=== PATIENT | male | born 1930 | race Caucasian/White ===

== ENCOUNTER 2016-06-14 09:18 | Inpatient (IN) | payer OTHER ==
--- NOTE | 2016-06-14 09:30 | CPEKG ---
Heart Rate: 82 RR Interval: 732 P-R Interval: 192 QRSD Interval: 122 QT Interval: 396 QTC Interval: 463 P Everett: 72 QRS Everett: -35 T Wave Everett: 98 EKG Severity - ABNORMAL ECG - EKG Impression: SINUS RHYTHM EKG Impression: NONSPECIFIC INTRAVENTRICULAR CONDUCTION DELAY EKG Impression: PROBABLE LATERAL INFARCT, AGE INDETERMINATE Electronically Signed By: Liz Chase 14-Jun-2016 16:28:22
[2016-06-14 09:45] LABS: % IMMATURE GRANULYOCYTES 0.3 % (0.0-1.1); ABSOLUTE IMMATURE GRANULOCYTES 0.03 10^3/uL (0.00-0.10); ADD DIFF? NO; ADD MORPH? NO; ADD SCAN? NO; ATYPICAL LYMPHOCYTE FLAG 0 (0-99); FRAGMENT RBC FLAG 0 (0-99); HEMATOCRIT 46.7 % (40.0-51.0); HEMOGLOBIN 15.4 g/dL (13.7-17.5); LEFT SHIFT FLG 0 (0-99); LIPEMIA HEMOLYSIS FLAG 80 (0-99); MEAN CELL HEMOGLOBIN 31.1 pg (27.9-34.1); MEAN CELL VOLUME 94.3 fL (81.5-99.8); MEAN PLATELET VOLUME 9.4 fL (8.7-11.7); PLATELET CLUMPS FLAG 30 (0-99); PLATELET COUNT 208 10^3/uL (150-400); RED BLOOD CELL COUNT 4.95 10^6/uL (4.40-6.38); RED CELL DISTRIBUTION WIDTH 13.7 % (11.5-15.2)
--- NOTE | 2016-06-14 09:49 | EDPHY ---
H & P Time Seen by Provider: 06/14/16 09:19 HPI/ROS: CHIEF COMPLAINT: shortness of breath, weakness HISTORY OF PRESENT ILLNESS: Patient is an 85-year-old male with a history of neuropathy who presents emergency department with increased weakness and shortness of breath. He states he has been mildly short of breath for some time but is worsened over the past few days. He has also developed a nonproductive cough. He denies chest pain. No nausea or vomiting. The patient is chronically incontinent of urine or stool. Patient generally needs aid of a walker to go to the bathroom. However, this morning he was unable to get himself out of bed. REVIEW OF SYSTEMS: My complete review of systems is negative except as mentioned in the HPI. Past Medical/Surgical History: Neuropathy, pneumonia, prostate issues Social History: Social history: The patient lives with his . He uses a walker to get about the house. Today he was unable to get out of bed. Smoking Status: Never smoked Physical Exam: Vitals noted. 37.5 GENERAL: No acute distress, alert. HEENT: Eyes normal to inspection, normal pharynx, no signs of dehydration. NECK: No thyromegaly, no lymphadenopathy, supple. RESPIRATORY: Slightly coarse breath sounds at right base, no rales, rhonchi or wheezing. CVS: Regular rate and rhythm, no rubs, murmurs, or gallops. ABDOMEN: Soft, nontender, nondistended, no organomegaly. Benign BACK: Normal to inspection, no CVA tenderness. SKIN: Normal color, no rash, warm, dry. No pallor. EXTREMITIES: No pedal edema, no calf tenderness, no Homans sign or cords, no joint swelling. NEURO/PSYCH: Alert and oriented x3, normal mood and affect, normal motor sensory exam. Constitutional: Initial Vital Signs Temperature (C) 37.5 C 06/14/16 09:32 Heart Rate 82 06/14/16 09:32 Respiratory Rate 20 06/14/16 09:32 Blood Pressure 146/69 H 06/14/16 09:32 O2 Sat (%) 83 L 06/14/16 09:32 O2 Delivery Mode Nasal Cannula O2 (L/minute) 4 Allergies/Adverse Reactions: No Known Allergies Allergy (Unverified 06/14/16 09:31) Home Medications: Medication Instructions Recorded Cyanocobalamin [Vitamin B12 (*)] 100 mcg PO DAILY 06/14/16 Finasteride [Proscar 5 MG (*)] 5 mg PO DAILY 06/14/16 Herbals/Supplements -Info Only 1 ea PO DAILY 06/14/16 Multivitamins [Multivitamin (*)] 1 each PO DAILY 06/14/16 Tamsulosin HCl [Flomax 0.4 MG (*)] 0.4 mg PO DAILY 06/14/16 Medical Decision Making ED Course/Re-evaluation: In the emergency department I discussed possible etiologies with the patient and his . I answered all his questions. IV was placed. Laboratory studies , EKG and chest x-ray were ordered. EKG: Sinus rhythm. Normal axis. Normal rhythm. P.r. QT normal. Mildly prolonged QRS. Chest x-ray: The patient has a left upper lobe mass. This consistent with TB versus malignancy per the radiologist. I reviewed the images with him personally. Patient was noted have a white count of 10. Lactate was 1.5. Troponin negative. I discussed the result with the patient. I answered all his questions. Patient normally gets his care at [facility]. I contacted the physician at 9 . They recommend the patient be admitted here. I discussed the plan with the patient and his . I answered all her questions. I discussed the case with the hospitalist service. Dr. Valdivia will admit. Patient was placed in a negative pressure room. 1235: The patient is doing well. No new complaints. 1440: I discussed the case with Dr. Valdivia. He recommends Rocephin and azithromycin. These were ordered. Differential Diagnosis: My differential includes but is not limited to pneumonia, bronchitis, influenza , ACS, acute MO, myocarditis, pericarditis, electrolyte abnormality, sugar abnormality, bacteremia, sepsis Patient was noted to have a left upper lobe mass. This is consistent with malignancy versus TB. The patient has no reported history of TB. I contacted [facility]. There is no history of malignancy. Patient will be admitted and further evaluated. Patient is not appear septic or toxic. - Data Points Laboratory Results: Laboratory Results 06/14/16 09:25 06/14/16 09:25 06/14/16 06/14/16 09:35 09:25 WBC 10.13 H 10^3/uL (3.80-9.50) RBC 4.95 10^6/uL (4.40-6.38) Hgb 15.4 g/dL (13.7-17.5) Hct 46.7 % (40.0-51.0) MCV 94.3 fL (81.5-99.8) MCH 31.1 pg (27.9-34.1) MCHC 33.0 g/dL (32.4-36.7) RDW 13.7 % (11.5-15.2) Plt Count 208 10^3/uL (150-400) MPV 9.4 fL (8.7-11.7) Neut % (Auto) 92.3 H % (39.3-74.2) Lymph % (Auto) 3.4 L % (15.0-45.0) [place] % (Auto) 3.4 L % (4.5-13.0) Eos % (Auto) 0.3 L % (0.6-7.6) Baso % (Auto) 0.3 % (0.3-1.7) Nucleat RBC Rel Count 0.0 % (0.0-0.2) Absolute Neuts (auto) 9.36 H 10^3/uL (1.70-6.50) Absolute Lymphs (auto) 0.34 L 10^3/uL (1.00-3.00) Absolute Monos (auto) 0.34 10^3/uL (0.30-0.80) Absolute Eos (auto) 0.03 10^3/uL (0.03-0.40) Absolute Basos (auto) 0.03 10^3/uL (0.02-0.10) Absolute Nucleated RBC 0.00 10^3/uL (0-0.01) Immature Gran % 0.3 % (0.0-1.1) Immature Gran # 0.03 10^3/uL (0.00-0.10) PT 13.6 SEC (12.0-15.0) INR 1.05 (0.83-1.16) APTT 29.3 SEC (23.0-38.0) VBG Lactic Acid 1.5 mmol/L (0.7-2.1) Sodium 146 H mEq/L (134-144) Potassium 4.3 mEq/L (3.5-5.2) Chloride 105 mEq/L (97-110) Carbon Dioxide 29 mEq/l (22-31) Anion Gap 12 mEq/L (8-16) BUN 20 mg/dL (7-23) Creatinine 0.9 mg/dL (0.7-1.3) Estimated GFR > 60 Glucose 101 H mg/dL (70-100) Calcium 9.0 mg/dL (8.5-10.4) Troponin I 0.023 ng/mL (0-0.034) Departure - Departure Disposition: [facility] Inpatient Acute Clinical Impression: Lung mass Condition: Good
[2016-06-14 09:52] LABS: ANION GAP 12 mEq/L (8-16); CARBON DIOXIDE 29 mEq/l (22-31); CHLORIDE 105 mEq/L (97-110); CREATININE 0.9 mg/dL (0.7-1.3); GLOMERULAR FILTRATION RATE > 60; GLUCOSE 101 mg/dL (70-100); POTASSIUM 4.3 mEq/L (3.5-5.2); SODIUM 146 mEq/L (134-144)
[2016-06-14 09:59] LABS: INR 1.05 (0.83-1.16); PROTIME(PATIENT) 13.6 SEC (12.0-15.0)
[2016-06-14 10:00] LABS: APTT 29.3 SEC (23.0-38.0)
[2016-06-14 10:03] LABS: TROPONIN I 0.023 ng/mL (0-0.034)
--- NOTE | 2016-06-14 10:31 | DX ---
PA and lateral chest. Clinical History: SOB Comparison Study: None available. Findings: Pleural and parenchymal fibrosis with volume loss is identified in the left upper lobe. Thi s may be secondary to prior infectious etiology such as tuberculosis or malignancy. Comparison with p rior studies or chest CT would be of benefit in further evaluation. Minimal atelectasis or scarring right lower lobe. Heart size is normal. No pleural effusion.. Multiple posterior remote left rib fractures are identified, predominantly involving the fourth, fift h, sixth, and seventh ribs. 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 Recommend comparison with prior examinations or chest CT.. Right lower lobe atelectasis or scarring. Examination reviewed with Dr. Liz Chase.
[2016-06-14] MEDS ORDERED: ONDANSETRON DISINTEGRATING 4 MG TAB PO PRN (12:28)
[2016-06-14] MEDS ORDERED: ONDANSETRON 4 MG/2 ML VIAL IVP PRN (12:28)
[2016-06-14] MEDS ORDERED: ACETAMINOPHEN 325 MG TAB PO PRN (12:28)
[2016-06-14] MEDS ORDERED: IOPAMIDOL (ISOVUE-300) 100 ML BTL IV ONE (12:58)
[2016-06-14] MEDS ORDERED: AZITHROMYCIN IV 500 MG in D5W 250 ML IV ONE (13:53)
--- NOTE | 2016-06-14 14:15 | CT ---
CT Chest (With Contrast) Indication: Abnormal left upper lobe. Technique: Standard CT of the chest following intravenous administration of 90 mL of Isovue-300. Dose reduction techniques were utilized. Comparison: Chest x-ray performed earlier the same day. Findings: Lung windows: There is cicatricial atelectasis and bronchiectasis of the left upper lobe associated w ith diffuse pleural thickening. Imaging features are most compatible with prior inflammatory etiology , including possible tuberculosis. No dominant lung mass identified. Within the right lung, there is patchy atelectasis of the right lower lobe above the right hemidiaphragm. No significant pleural effu micheal bilaterally. Mediastinal windows: No pleural effusion. No masses identified. Images of the upper abdomen appear be nign. Impression: Cicatricial atelectasis and volume loss left upper lobe with associated pleural fibrosis. Findings are most compatible with postinflammatory etiology, including possible tuberculosis.
--- NOTE | 2016-06-14 14:25 | PDGENHP ---
History and Physical - Chief Complaint Acute weakness - History of Present Illness Primary care provider: Dr. Perry HPI: 85-year-old male presenting with acute weakness characterized as inability to get out of bed with associated shortness of breath exacerbated by exertion and nonproductive cough experienced in the morning. Patient reports his onset of symptoms was approximately 1 month ago and duration has been acutely worsening over the past several days. His cough is worse in the mornings and is alleviated by sitting upright coughing and is not productive of sputum. Reports no recent travel and no recent chest pain, no fever, no chills , no weight loss, no night sweats. He has not had any recent medication changes he reports that he is generally otherwise healthy. That being said, he requires the assistance a walker in order to transition from bed to standing position at his baseline. Of note, the patient reports that 1 of the nurses at his adult daycare center noted his pulmonary exam was abnormal over the past month, but no further workup was initiated. History Information - Allergies/Home Medication List Allergies/Adverse Reactions: No Known Allergies Allergy (Unverified 06/14/16 09:31) Home Medications: Cyanocobalamin [Vitamin B12 (*)] 100 mcg PO DAILY 06/14/16 [Last Taken 06/13/16] Finasteride [Proscar 5 MG (*)] 5 mg PO DAILY 06/14/16 [Last Taken 06/13/16] Herbals/Supplements -Info Only 1 ea PO DAILY 06/14/16 [Last Taken 06/13/16] Multivitamins [Multivitamin (*)] 1 each PO DAILY 06/14/16 [Last Taken 06/13/16] Tamsulosin HCl [Flomax 0.4 MG (*)] 0.4 mg PO DAILY 06/14/16 [Last Taken 06/13/16 ] I have personally reviewed and updated: family history, medical history, social history, surgical history - Past Medical History Additional medical history: 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 - Surgical History Reports: no pertinent surgical hx - Family History Additional family history: No recent sick family contacts, no family history of colon cancer, his sister had lung cancer but she was a smoker - Social History Smoking Status: Never smoked Alcohol Use: None Drug Use: None Additional social history: Reports that he is normally independent in his ADLs and he lives with his Review of Systems ROS: 10pt was reviewed & negative except for what was stated in HPI & below Constitutional: Reports: weakness Respiratory: Reports: cough Physical Exam Temp Pulse Resp BP Pulse Ox 37.2 C 72 18 135/72 H 95 06/14/16 14:13 06/14/16 14:13 06/14/16 14:13 06/14/16 14:13 06/14/16 14:13 O2 (L/minute) 4 Constitutional: no apparent distress, appears nourished, not in pain Eyes: anicteric sclera, EOMI, other (Constricted pupils) Ears, Nose, Mouth, Throat: hearing normal, no oral mucosal ulcers, other (Tacky mucous membranes) Cardiovascular: regular rate and rhythym, no murmur, rub, or gallop, No irregularly irregular, No tachycardia, No edema Respiratory: other (Inspiratory crackles in the bilateral bases, left upper posterior segment with increased loud air movement superiorly and reduced air movement inferiorly), No expiratory wheeze, No bronchial breath sounds, No respiratory distress Gastrointestinal: normoactive bowel sounds, soft, non-tender abdomen, no palpable masses Genitourinary: no bladder fullness, no bladder tenderness Neurologic: AAOx3, weakness (Motor strength is 3 to 4/5 bilateral lower extremity, 5/5 bilateral upper extremity), No sensation intact bilaterally ( Paresthesias in the bilateral lower extremities), No facial droop Psychiatric: interacting appropriately, not anxious, not encephalopathic, thought process linear Lab Data & Imaging Review 06/14/16 09:25 06/14/16 09:25 WBC 10.13 10^3/uL (3.80-9.50) H 06/14/16 09:25 RBC 4.95 10^6/uL (4.40-6.38) 06/14/16 09:25 Hgb 15.4 g/dL (13.7-17.5) 06/14/16 09:25 Hct 46.7 % (40.0-51.0) 06/14/16 09:25 MCV 94.3 fL (81.5-99.8) 06/14/16 09:25 MCH 31.1 pg (27.9-34.1) 06/14/16 09:25 MCHC 33.0 g/dL (32.4-36.7) 06/14/16 09:25 RDW 13.7 % (11.5-15.2) 06/14/16 09:25 Plt Count 208 10^3/uL (150-400) 06/14/16 09:25 MPV 9.4 fL (8.7-11.7) 06/14/16 09:25 Neut % (Auto) 92.3 % (39.3-74.2) H 06/14/16 09:25 Lymph % (Auto) 3.4 % (15.0-45.0) L 06/14/16 09:25 [place] % (Auto) 3.4 % (4.5-13.0) L 06/14/16 09:25 Eos % (Auto) 0.3 % (0.6-7.6) L 06/14/16 09:25 Baso % (Auto) 0.3 % (0.3-1.7) 06/14/16 09:25 Nucleat RBC Rel Count 0.0 % (0.0-0.2) 06/14/16 09:25 Absolute Neuts (auto) 9.36 10^3/uL (1.70-6.50) H 06/14/16 09:25 Absolute Lymphs (auto) 0.34 10^3/uL (1.00-3.00) L 06/14/16 09:25 Absolute Monos (auto) 0.34 10^3/uL (0.30-0.80) 06/14/16 09:25 Absolute Eos (auto) 0.03 10^3/uL (0.03-0.40) 06/14/16 09:25 Absolute Basos (auto) 0.03 10^3/uL (0.02-0.10) 06/14/16 09:25 Absolute Nucleated RBC 0.00 10^3/uL (0-0.01) 06/14/16 09:25 Immature Gran % 0.3 % (0.0-1.1) 06/14/16 09:25 Immature Gran # 0.03 10^3/uL (0.00-0.10) 06/14/16 09:25 PT 13.6 SEC (12.0-15.0) 06/14/16 09:35 INR 1.05 (0.83-1.16) 06/14/16 09:35 APTT 29.3 SEC (23.0-38.0) 06/14/16 09:35 VBG Lactic Acid 1.5 mmol/L (0.7-2.1) 06/14/16 09:35 Sodium 146 mEq/L (134-144) H 06/14/16 09:25 Potassium 4.3 mEq/L (3.5-5.2) 06/14/16 09:25 Chloride 105 mEq/L (97-110) 06/14/16 09:25 Carbon Dioxide 29 mEq/l (22-31) 06/14/16 09:25 Anion Gap 12 mEq/L (8-16) 06/14/16 09:25 BUN 20 mg/dL (7-23) 06/14/16 09:25 Creatinine 0.9 mg/dL (0.7-1.3) 06/14/16 09:25 Estimated GFR > 60 06/14/16 09:25 Glucose 101 mg/dL (70-100) H 06/14/16 09:25 Calcium 9.0 mg/dL (8.5-10.4) 06/14/16 09:25 Troponin I 0.023 ng/mL (0-0.034) 06/14/16 09:25 Visualized and Interpreted Chest x-ray results: Yes Chest X-Ray results: other (Left upper lobe mass versus inflammatory changes with right lower lobe atelectasis) Visualized and Interpreted EKG results: Yes EKG Interpretation: Positive for: other (Flattening of the T-waves laterally) Assessment & Plan Assessment: 85-year-old male presents with acute weakness Plan: 1. Weakness. Acute, new problem this provider, further workup indicated. Potential etiologies include community-acquired pneumonia versus pulmonary mass versus tuberculosis. -both chest x-ray and chest CT were read as concerning for possible tuberculosis as well as possible mass versus inflammatory changes -send sputum culture as well as AFB -will get pulmonary consultation and possible bronchoscopy, NPO in a.m., confirmed with patient that he would want to know the diagnosis and would want to consider treatment if malignancy is highly suspected -will empirically treat for possible community-acquired pneumonia with ceftriaxone and azithromycin, discussed with Dr. Ingram in the emergency department, he will initiate these antibiotics at this time -place the patient empirically negative pressure room and continue to use N95 masks -will obtain this further information prior to consulting with Infectious Disease as it is not entirely clear whether this is more of a bacterial infectious process versus malignancy versus tuberculosis, as the patient does not have any known high-risk tuberculosis exposures -engage in physical and occupational therapy 2. Neuropathy. Continue patient's home medications, does not appear that the patient has symptoms concerning for cord compression as his urinary incontinence and bilateral lower extremity weakness have been evaluated in the outpatient setting and have been progressive over the span of years Diet. Regular diet Prophylaxis. High risk patient, SCDs, hold pharmacologic prophylaxis given the patient may have bronchoscopy with biopsy tomorrow Code. Not resuscitate per patient, his advance directive wishes have all been put in writing Disposition. Anticipated discharge is 06/15/2016, pending further workup and potential treatment as outlined above. If patient requires prolonged IV antibiotics or procedural evaluation, then he will require upgraded to inpatient admission status. I have discussed this patient with Dr. Ingram, he reports to me that [facility] has been contacted about this patient's presentation and they have recommended that the patient be evaluated our facility.
[2016-06-14] MEDS: IPRATROPIUM/ALBUTEROL 3 ML DEYVIAL IH SCH ×3 (16:27→21:08)
[2016-06-14] MEDS: D5W 1/2 NS 1,000 ML IV SCH (16:30)
[2016-06-14] MEDS ORDERED: guaiFENesin/CODEINE PHOS 10 ML UDCUP PO PRN (20:25)
--- NOTE | 2016-06-14 22:12 | GCON ---
[f rep st] CONSULTATION PULMONARY CONSULTATION DATE OF CONSULTATION: 06/14/2016 REASON FOR CONSULTATION: Left upper lobe infiltrate. HISTORY: The patient is an 85-year-old gentleman who was admitted to the hospital earlier today with increasing weakness to the point where he had difficulty getting out of bed. This apparently was as sociated with some shortness of breath? Chest x-ray showed infiltrate and volume loss in the left up per lobe. CT scan of the chest was done, which confirmed this finding and better defined significant scarring, volume loss, bronchiectasis, and pleural thickening. Minimal changes of atelectasis were seen on the right. The patient has been afebrile. White blood cell count is minimally elevated at 1 0,000 with a shift to the left. The patient reports a long history of pulmonary disease. He states that when he was in high school, he had left lung abnormalities, probably associated with scarring and volume loss at that time. He w as apparently evaluated then for tuberculosis, but none was found. Over the years, he has had interm ittent evaluations for the same. He was last hospitalized over 10 years ago at [facility] for "pneumonia." He recalls only being in the hospital a day or two. He has been with [facility] for the past 10 years or longer. PRIMARY CARE PHYSICIAN: Beni Perry MD. The patient states he was last evaluated by Dr. Perry for possible tuberculosis a couple years ago. He does not recall what was done, if he saw pulmonary, if he had chest x-rays or CT scans, skin tests, etc. However, he recalls being told that he did not have pulmonary tuberculosis. The patient smoked minimally in the distant past. He has no exposures. He has not been around anyon e else who is sick. He is cared for by his . He uses a walker. There is no recent travel. He does go to an adult daycare program several times per week. He has had no fevers, chills, or sweats. He denies shortness of breath or dyspnea on exertion to me. He states he is strong and as active a s possible. He has had no weight loss. Appetite is good. He does cough and bring up a small amount of clear sputum in the mornings and has done so for many years. He is not on any inhaled medication s, but believes he has been on these in the past. He is currently in isolation for tuberculosis. A sputum culture including an AFB smear has been orde red, but has not been obtained. PAST MEDICAL HISTORY: Remarkable for neuropathy and urinary incontinence. MEDICATIONS: At home are as listed. SOCIAL HISTORY: As outlined above. He lives with his who helps care for him, uses a walker, sm oked minimally in the past, denies alcohol. FAMILY HISTORY: Noncontributory. REVIEW OF SYSTEMS: Negative except as outlined above in the HPI. In addition, he states that his we akness has been progressive possibly for the last 5-7 days? He denies any heart disease, abdominal p roblems, thromboembolic disease, or other issues. PHYSICAL EXAMINATION: GENERAL: Reveals an elderly gentleman who is in no acute distress. He is sit ting comfortably in bed. VITAL SIGNS: Oxygen is in place at 2 L. Saturations are 94%. He is afebrile. Blood pressure is 12 0/70, heart rate 70 and regular, respiratory rate 18. HEENT: Unremarkable for lymphadenopathy or th yromegaly. There is no jugular venous distention. Mucous membranes are moist. CHEST: Reveals coar se breath sounds with E to A changes over the left upper lobe. There are no wheezes, no rhonchi, no rales. He has no central airway congestion with cough or forced maneuvers. HEART: Regular in rate and rhythm. There is a soft systolic murmur, no gallop. ABDOMEN: Soft, nontender. Bowel sounds ar e present. There is no organomegaly. EXTREMITIES: Unremarkable for significant edema. There are n o cords, and there is no tenderness. There is no rash, and there are no significant lesions. LABORATORY DATA: Database radiologic studies are as outlined above. White blood cell count is 10,10 0, hematocrit 46, platelets 208,000. PT and PTT were normal on admission, lactate normal. Basic met abolic panel is within normal limits, troponins negative. ASSESSMENT: 1. Left upper lobe infiltrate. I believe that this will end up being chronic infiltrate with scarri ng, bronchiectasis, and destroyed lung without associated acute pathology. However, pneumonia cannot be excluded and current antibiotics are appropriate. I also doubt that this represents active pulmo nary tuberculosis in light of the fact that these changes likely have been present for many years and that previous workups may have been normal. However, I cannot rule out tuberculosis at this time an d isolation, and the obtainment of AFB samples would appear to be appropriate. Records and radiologi c studies from [facility] may be helpful, as well. There is no indication at this time for acute broncho scopy. 2. Weakness. The etiology is unclear. If pneumonia is present, this may be the cause. Urinalysis should be obtained to rule out occult urinary tract infection. TSH should be checked. PLAN AND RECOMMENDATIONS: The patient will be kept in respiratory isolation for now. Three sputum's do need to be obtained and have been ordered, but not yet collected. A QuantiFERON may be helpful t o some extent if negative. If positive, this could indicate latent or possibly active tuberculosis. However, a positive test certainly would not mean that he definitely has active TB. TSH will be mustapha cked. Records will be requested from [facility]. I will try to discuss his case directly with Dr. Gino lund, as well. Bronchoscopy will not be considered at the present time, but could be done if needed du ring this hospital stay. The above was discussed with Dr. Valdivia. /[id number]/MODL
[2016-06-15] MEDS: ERTAPENEM 1 GM in NS 100 ML IV SCH ×2 (00:32→12:08)
[2016-06-15 03:28] LABS: COLOR YELLOW; LEUKOCYTE ESTERASE,URINE 2+ (NEGATIVE); NITRITE,URINE POSITIVE (NEGATIVE)
[2016-06-15 03:49] LABS: MUCUS 1+ /lpf (NONE-1+); RBC,URINE 15-25 /hpf (0-3); WBC,URINE 50-182 /hpf (0-3)
[2016-06-15] MEDS: IPRATROPIUM/ALBUTEROL 3 ML DEYVIAL IH SCH (05:49)
[2016-06-15] MEDS ORDERED: PIPERACILLIN/TAZO 3.375 GM/DEX 50 ML IV SCH (06:00)
[2016-06-15] MEDS: D5W 1/2 NS 1,000 ML IV SCH ×2 (06:26→18:13)
[2016-06-15 06:32] LABS: % IMMATURE GRANULYOCYTES 0.3 % (0.0-1.1); ABSOLUTE IMMATURE GRANULOCYTES 0.04 10^3/uL (0.00-0.10); ADD DIFF? NO; ADD MORPH? NO; ADD SCAN? NO; ATYPICAL LYMPHOCYTE FLAG 0 (0-99); FRAGMENT RBC FLAG 0 (0-99); HEMOGLOBIN 13.3 g/dL (13.7-17.5); LEFT SHIFT FLG 10 (0-99); LIPEMIA HEMOLYSIS FLAG 80 (0-99); MEAN CELL HEMOGLOBIN 30.9 pg (27.9-34.1); MEAN CELL HEMOGLOBIN CONCENTR. 32.4 g/dL (32.4-36.7); MEAN CELL VOLUME 95.3 fL (81.5-99.8); MEAN PLATELET VOLUME 9.5 fL (8.7-11.7); PLATELET CLUMPS FLAG 20 (0-99); PLATELET COUNT 182 10^3/uL (150-400); RED CELL DISTRIBUTION WIDTH 14.3 % (11.5-15.2)
[2016-06-15 06:46] LABS: ALANINE AMINOTRANSFERASE 42 IU/L (21-72); ALKALINE PHOSPHATASE 78 IU/L (38-126); ANION GAP 6 mEq/L (8-16); ASPARTATE AMINOTRANSFERASE 33 IU/L (17-59); CALCIUM 8.5 mg/dL (8.5-10.4); CARBON DIOXIDE 28 mEq/l (22-31); CHLORIDE 106 mEq/L (97-110); GLOMERULAR FILTRATION RATE > 60; GLUCOSE 105 mg/dL (70-100); POTASSIUM 4.2 mEq/L (3.5-5.2); SODIUM 140 mEq/L (134-144); TOTAL PROTEIN 5.8 g/dL (6.3-8.2)
[2016-06-15] MEDS ORDERED: Herbals/Supplements -Info Only PO SCH (09:00)
[2016-06-15] MEDS: TAMSULOSIN HCL 0.4 MG CAP PO SCH (09:21)
[2016-06-15] MEDS: FINASTERIDE 5 MG TAB PO SCH (09:21)
[2016-06-15] MEDS: AZITHROMYCIN IV 500 MG in D5W 250 ML IV SCH (09:21)
[2016-06-15] MEDS: CYANO/VITAMIN B12 100 MCG TAB PO SCH (09:21)
[2016-06-15] MEDS: MULTIVITAMINS 1 EACH TAB PO SCH (09:21)
[2016-06-15] MEDS ORDERED: IPRATROPIUM/ALBUTEROL 3 ML DEYVIAL IH PRN (09:47)
--- NOTE | 2016-06-15 12:48 | SOAPPROG ---
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 No associated mucus. Likely present for many many years. Multiple negative workups for tuberculosis by his report in the past, last at [place] within the last 2 or 3 years. We are trying to obtain records from [place]. I will try to get a hold of Dr. Perry, his [place] physician, and discuss his case. Likely no active tuberculosis present however is being ruled out for this. Possible pneumonia. Hard to exclude in left upper lobe although he has very little symptoms other than his presenting complaint of weakness suggestive of pneumonia. On broad-spectrum antibiotics which will be continued for now. Probable urinary tract infection with E coli. Urine shows pyuria and a blood culture is starting to grow E coli. This is the probable cause of his weakness and current presentation. Plan: Continue antibiotics for urinary tract infection and E coli bacteremia. Urologic consult may be indicated. Obtain 3 sputums for AFB. If all negative then he can be taken out of isolation. Obtain records from [place]. I will try to discuss his case with his primary care provider at [place], look for previous pulmonary evaluations, etc. No indication for bronchoscopy at this time. Subjective: Feels stronger this morning. No pulmonary symptoms. Denies shortness of breath. Coughed up a little white mucus this morning as he usually does. Denies any fevers. Objective: Vital Signs Temp Pulse Resp BP Pulse Ox 37.1 C 78 18 120/61 94 06/15/16 11:35 06/15/16 11:35 06/15/16 11:35 06/15/16 11:35 06/15/16 11:35 Laboratory Results 06/15/16 05:41 06/15/16 05:41 06/14/16 06/15/16 06/16/16 05:59 05:59 05:59 Intake Total 2556 Balance 2556 PT 13.6 SEC (12.0-15.0) 06/14/16 09:35 INR 1.05 (0.83-1.16) 06/14/16 09:35 Physical Exam - Physical Exam General Appearance: alert, no apparent distress EENT: normal ENT inspection, other (Nasal cannula 2 L: 94%) Neck: normal inspection (No JVD) Respiratory: normal breath sounds, other (Coarse breath sounds over the left upper lobe with E-A changes. No rales, no wheezes, no rhonchi. No change compared to yesterday.) Cardiac/Chest: regular rate, rhythm, systolic murmur Abdomen: normal bowel sounds, non-tender, soft Skin: normal color, warm/dry Extremities: pedal edema (Trace) Neuro/Psych: no motor/sensory deficits, oriented x 3, No cognition abnormalities ICD10 Worksheet Patient Problems: Problems Problem Status Diagnosed Lung mass Acute
--- NOTE | 2016-06-15 15:33 | HOSPPROG ---
Hospitalist Progress Note Assessment/Plan: # Acute E.Coli Bacteremia - suspect urinary source based on abnormal urinalysis - culture pending - cont IV ertapenem until sensitivities available # pulmonary infiltrates - CT chest (personally reviewed and interpreted) shows fibrotic changes of DEENA- oxygen saturation 94% on 2 L etiology and chronology unclear although suspicions is high these changes on imaging are chronic - AFB sputums - records from [place] - pulmonary consulting - continue empiric antibiotics for CAP # acute leukocytosis- WBC 13- suspect secondary to UTI and E coli bacteremia - continue IV antibiotics # Acute Weakness - suspect multifactorial - bacteremia certainly contributing - cont IV abx - awiat culture sensitivities # chronic Neuropathy- bilateral lower extremity weakness have been evaluated in the outpatient setting and have been progressive over the span of years - continue home meds - cont PT/OT # Diet. Regular diet # Prophylaxis. High risk patient, SCDs, hold pharmacologic prophylaxis given the patient may have bronchoscopy with biopsy tomorrow # DNR # Dispo - >2 MN as pt recurring IV antibiotics for bacteremia and work up for pulmonary infiltrates/fibrosis I have discussed the case with RT will complete patient's AFB sputums x3 while in negative isolation Subjective: breathing is baseline Objective: Vital Signs Temp Pulse Resp BP Pulse Ox 37.1 C 78 18 120/61 94 06/15/16 11:35 06/15/16 11:35 06/15/16 11:35 06/15/16 11:35 06/15/16 11:35 Microbiology 06/15/16 06:30 - Final Sputum, Expectorated Laboratory Results 06/15/16 05:41 06/15/16 05:41 06/14/16 06/15/16 06/16/16 05:59 05:59 05:59 Intake Total 2556 Balance 2556 PT 13.6 SEC (12.0-15.0) 06/14/16 09:35 INR 1.05 (0.83-1.16) 06/14/16 09:35 - Physical Exam Constitutional: appears nourished Eyes: anicteric sclera Ears, Nose, Mouth, Throat: moist mucous membranes Cardiovascular: regular rate and rhythym, systolic murmur Respiratory: no respiratory distress, inspiratory crackles Gastrointestinal: normoactive bowel sounds, soft, non-tender abdomen Genitourinary: no bladder fullness Skin: warm, normal color Musculoskeletal: No asymmetric calves Neurologic: AAOx3 Psychiatric: interacting appropriately, not anxious Lymph, Heme, Immunologic: no cervical LAD ICD10 Worksheet Patient Problems: Problems Problem Status Diagnosed Lung mass Acute
[2016-06-16] MEDS: TAMSULOSIN HCL 0.4 MG CAP PO SCH (08:52)
[2016-06-16] MEDS: FINASTERIDE 5 MG TAB PO SCH (08:52)
[2016-06-16] MEDS: MULTIVITAMINS 1 EACH TAB PO SCH (08:52)
[2016-06-16] MEDS: CYANO/VITAMIN B12 100 MCG TAB PO SCH (08:52)
[2016-06-16] MEDS: ERTAPENEM 1 GM in NS 100 ML IV SCH (08:52)
[2016-06-16] MEDS: AZITHROMYCIN IV 500 MG in D5W 250 ML IV SCH (09:29)
--- NOTE | 2016-06-16 13:29 | SOAPPROG ---
SOAP Progress Note Assessment/Plan: Assessment/Plan: * Chronic left upper lobe disease with bronchiectasis, volume loss, and scarring. No associated mucus. Likely present for many many years. Multiple negative workups for tuberculosis by his report in the past, last at [place] within the last 2 or 3 years. We are trying to obtain records from [place]. I Likely no active tuberculosis present however is being ruled out for this. * Possible pneumonia. Hard to exclude in left upper lobe although he has very little symptoms other than his presenting complaint of weakness suggestive of pneumonia. -On broad-spectrum antibiotics * Probable urinary tract infection with E coli. Urine shows pyuria and a blood culture is starting to grow E coli. This is the probable cause of his weakness and current presentation. Subjective: Comfortable. Breathing easily. No increased cough. Objective: Vital Signs Temp Pulse Resp BP Pulse Ox 36.7 C 71 18 112/63 95 06/16/16 08:00 06/16/16 08:00 06/16/16 08:00 06/16/16 08:00 06/16/16 08:00 06/15/16 06/16/16 06/17/16 05:59 05:59 05:59 Intake Total 800 250 Balance 800 250 PT 13.6 SEC (12.0-15.0) 06/14/16 09:35 INR 1.05 (0.83-1.16) 06/14/16 09:35 Laboratory Results 06/15/16 05:41 06/15/16 05:41 06/15/16 06/15/16 06/14/16 05:41 02:01 21:30 Calcium 8.5 mg/dL mg/dL (8.5 - 10.4) Total Bilirubin 1.0 mg/dL mg/dL (0.1 - 1.4) AST 33 IU/L IU/L (17 - 59) ALT 42 IU/L IU/L (21 - 72) Alkaline Phosphatase 78 IU/L IU/L (38 - 126) Total Protein 5.8 g/dL L g/dL (6.3 - 8.2) Albumin 3.0 g/dL L g/dL (3.5 - 5.0) TSH 0.669 uIU/mL uIU/mL (0.465 - 4.680) Urine Color YELLOW Urine Appearance TURBID Urine pH 5.0 (5.0 - 7.5) Ur Specific [place] 1.021 (1.002 - 1.030) Urine Protein 2+ H Urine Ketones NEGATIVE Urine Blood 2+ H Urine Nitrate POSITIVE H Urine Bilirubin NEGATIVE Urine Urobilinogen NEGATIVE EU EU Ur Leukocyte Esterase 2+ H Urine RBC 15-25 /hpf H /hpf Urine WBC 50-182 /hpf H /hpf Ur Epithelial Cells NONE SEEN /lpf /lpf Urine Mucus 1+ /lpf /lpf Urine Glucose NEGATIVE Influenza A & B (PCR) NEGATIVE FOR FLU 06/16/16 11:30 Mycobacterial Smear (LUNA) - Pending Sputum, Expectorated Mycobacterial Culture - Pending 06/15/16 06:30 Mycobacterial Smear (LUNA) - Final Sputum, Induced/Suctioned Mycobacterial Culture - Pending 06/15/16 06:30 - Final Sputum, Expectorated Sputum Culture - Preliminary 06/14/16 09:25 Blood Culture - Preliminary Blood Blood Panel (PCR) - Final Escherichia Coli Escherichia Coli Physical Exam - Physical Exam General Appearance: alert, no apparent distress EENT: PERRL/EOMI, normal ENT inspection, pharynx normal, TMs normal Neck: non-tender, full range of motion, supple, normal inspection Respiratory: crackles (few) Cardiac/Chest: normal peripheral pulses, regular rate, rhythm Abdomen: normal bowel sounds, non-tender, soft Male Genitalia: deferred Rectal: deferred Skin: normal color, warm/dry Extremities: normal range of motion, non-tender, normal inspection, normal capillary refill ICD10 Worksheet Patient Problems: Problems Problem Status Onset Lung mass Acute
--- NOTE | 2016-06-16 13:44 | HOSPPROG ---
Hospitalist Progress Note Assessment/Plan: # Acute E.Coli Bacteremia - suspect urinary source based on abnormal urinalysis - and patients h/o BPH culture shows zee-sensitive E.Coli - will narrow ertapenem to ceftriaxone today # pulmonary infiltrates - CXR (personally reviewed and interpreted) left apical and pleural fibrosis- oxygen saturation 92% on 1 L etiology and chronology unclear although suspicions is high these changes on imaging are chronic - AFB sputums x2 - records from [place] pending - pulmonary consulting - continue empiric antibiotics for CAP - weaning oxygen today as able # acute leukocytosis- WBC 13- suspect secondary to UTI and E coli bacteremia - continue IV antibiotics - recheck in am # Acute Weakness - suspect multifactorial - bacteremia certainly contributing- patient reports improvement - cont IV abx # chronic Neuropathy- bilateral lower extremity weakness have been evaluated in the outpatient setting and have been progressive over the span of years - continue home meds - cont PT/OT # Diet. Regular diet # Prophylaxis. will start lovenox as bronchoscopy unlikely # DNR # Dispo - >2 MN as pt recurring IV antibiotics for bacteremia and work up for pulmonary infiltrates/fibrosis I have discussed the case with Pulmonary - we can avoid bronchoscopy if AFB negative and [facility] records confirm chronicity of findings Subjective: feeling better today Objective: Vital Signs Temp Pulse Resp BP Pulse Ox 36.7 C 71 18 112/63 95 06/16/16 08:00 06/16/16 08:00 06/16/16 08:00 06/16/16 08:00 06/16/16 08:00 06/15/16 06/16/16 06/17/16 05:59 05:59 05:59 Intake Total 800 250 Balance 800 250 PT 13.6 SEC (12.0-15.0) 06/14/16 09:35 INR 1.05 (0.83-1.16) 06/14/16 09:35 - Physical Exam Constitutional: appears nourished Eyes: anicteric sclera Ears, Nose, Mouth, Throat: moist mucous membranes Cardiovascular: regular rate and rhythym Respiratory: inspiratory crackles Gastrointestinal: normoactive bowel sounds, soft, non-tender abdomen Genitourinary: no bladder fullness Skin: warm, normal color Musculoskeletal: No asymmetric calves Neurologic: AAOx3 Psychiatric: interacting appropriately, not anxious Lymph, Heme, Immunologic: no cervical LAD ICD10 Worksheet Patient Problems: Problems Problem Status Onset Lung mass Acute
[2016-06-16] MEDS: D5W 1/2 NS 1,000 ML IV SCH (23:37)
[2016-06-17 05:49] LABS: HEMOGLOBIN 11.8 g/dL (13.7-17.5); MEAN CELL HEMOGLOBIN 31.1 pg (27.9-34.1); MEAN CELL HEMOGLOBIN CONCENTR. 32.8 g/dL (32.4-36.7); MEAN CELL VOLUME 94.7 fL (81.5-99.8); RED BLOOD CELL COUNT 3.8 10^6/uL (4.40-6.38); RED CELL DISTRIBUTION WIDTH 13.5 % (11.5-15.2)
[2016-06-17 06:02] LABS: ANION GAP 3 mEq/L (8-16); CALCIUM 8.2 mg/dL (8.5-10.4); CARBON DIOXIDE 28 mEq/l (22-31); CHLORIDE 106 mEq/L (97-110); CREATININE 0.7 mg/dL (0.7-1.3); GLOMERULAR FILTRATION RATE > 60; GLUCOSE 98 mg/dL (70-100); POTASSIUM 4.1 mEq/L (3.5-5.2); SODIUM 137 mEq/L (134-144)
[2016-06-17] MEDS: TAMSULOSIN HCL 0.4 MG CAP PO SCH (09:36)
[2016-06-17] MEDS: CYANO/VITAMIN B12 100 MCG TAB PO SCH (09:36)
[2016-06-17] MEDS: AZITHROMYCIN IV 500 MG in D5W 250 ML IV SCH (09:36)
[2016-06-17] MEDS: MULTIVITAMINS 1 EACH TAB PO SCH (09:36)
[2016-06-17] MEDS: D5W 1/2 NS 1,000 ML IV SCH (10:54)
--- NOTE | 2016-06-17 16:11 | HOSPPROG ---
Hospitalist Progress Note Assessment/Plan: # Acute E.Coli Bacteremia - suspect urinary source based on abnormal urinalysis - and patients h/o BPH culture shows sensitive E.Coli -narrowed from ertapenem to ceftriaxone yesterday # pulmonary infiltrates - chest CT (personally reviewed and interpreted) left apical and pleural fibrosis- oxygen saturation 94% on 1 L etiology and chronology unclear although suspicions is high these changes on imaging are chronic - AFB sputums x 3 now collected - pulmonary consulting - continue empiric antibiotics for CAP day#3 - weaning oxygen as able # acute leukocytosis- WBC 13->7 suspect normalization secondary to treatment of E coli bacteremia - continue IV antibiotics - recheck in am # Acute Weakness - suspect multifactorial - bacteremia certainly contributing- patient reports improvement - cont IV abx # chronic Neuropathy- bilateral lower extremity weakness have been evaluated in the outpatient setting and have been progressive over the span of years - continue home meds - cont PT/OT # Diet. Regular diet # Prophylaxis. will start lovenox as bronchoscopy unlikely # DNR # Dispo - >2 MN as pt recurring IV antibiotics for bacteremia and work up for pulmonary infiltrates/fibrosis I have discussed the case with Pulmonary - suspect AFB x3 will be negative can DC to SNF without bronchoscopy if so Subjective: feeling weaker than when at home Objective: Vital Signs Temp Pulse Resp BP Pulse Ox 36.8 C 75 18 130/64 H 94 06/17/16 09:34 06/17/16 12:23 06/17/16 12:23 06/17/16 12:23 06/17/16 12:23 Laboratory Results 06/17/16 05:15 06/17/16 05:15 06/16/16 06/17/16 06/18/16 05:59 05:59 05:59 Intake Total 800 3956 Balance 800 3956 PT 13.6 SEC (12.0-15.0) 06/14/16 09:35 INR 1.05 (0.83-1.16) 06/14/16 09:35 - Physical Exam Constitutional: appears nourished Eyes: anicteric sclera Ears, Nose, Mouth, Throat: moist mucous membranes Cardiovascular: regular rate and rhythym Respiratory: inspiratory crackles ( bilateral bases) Gastrointestinal: normoactive bowel sounds, soft, non-tender abdomen Genitourinary: no bladder fullness Skin: warm, normal color Musculoskeletal: No asymmetric calves Neurologic: AAOx3 Psychiatric: interacting appropriately, not anxious Lymph, Heme, Immunologic: no cervical LAD ICD10 Worksheet Patient Problems: Problems Problem Status Onset Lung mass Acute
[2016-06-17] MEDS: ENOXAPARIN 40 MG/0.4 ML SYR SC SCH (17:08)
[2016-06-18] MEDS: AZITHROMYCIN IV 500 MG in D5W 250 ML IV SCH (08:31)
[2016-06-18] MEDS: TAMSULOSIN HCL 0.4 MG CAP PO SCH (08:31)
[2016-06-18] MEDS: CYANO/VITAMIN B12 100 MCG TAB PO SCH (08:31)
[2016-06-18] MEDS: FINASTERIDE 5 MG TAB PO SCH (08:32)
[2016-06-18] MEDS: MULTIVITAMINS 1 EACH TAB PO SCH (08:32)
[2016-06-18] MEDS: ENOXAPARIN 40 MG/0.4 ML SYR SC SCH (08:32)
--- NOTE | 2016-06-18 11:06 | HOSPPROG ---
Hospitalist Progress Note Assessment/Plan: #E Coli bacteremia: suspect urinary with +UA. Day 2 of CTX (cultures 06/14) -transition to PO LQ at discharge for total 2 weeks abx #Weakness: due to above. PT recommending SNF; he is very hesitant #Pulmonary infiltrates: 3x AFB negative. Culture pending. Cont Azithr/CTX. Appreciate pulm recs #Chronic neuropathy: home meds, PT/OT #BPH: Flomax #Diet: regular #DVT ppx: Lovenox #Disp: accepted to [facility], but he feels he can do better therapy on his own at home Subjective: no SOB or chest pain Objective: Vital Signs Temp Pulse Resp BP Pulse Ox 36.9 C 76 16 127/68 H 93 06/18/16 08:50 06/18/16 08:50 06/18/16 08:50 06/18/16 08:50 06/18/16 08:50 Microbiology 06/17/16 06:30 Mycobacterial Smear (LUNA) - Final Sputum, Expectorated 06/16/16 11:30 Mycobacterial Smear (LUNA) - Final Sputum, Expectorated 06/15/16 18:00 Urine Culture - Final Urine,Clean Catch Laboratory Results 06/17/16 05:15 06/17/16 05:15 06/17/16 06/18/16 06/19/16 05:59 05:59 05:59 Intake Total 3956 2342 Output Total 400 Balance 3956 1942 PT 13.6 SEC (12.0-15.0) 06/14/16 09:35 INR 1.05 (0.83-1.16) 06/14/16 09:35 - Physical Exam Constitutional: no apparent distress Eyes: PERRL Ears, Nose, Mouth, Throat: moist mucous membranes, hearing normal Cardiovascular: regular rate and rhythym Respiratory: rhonchi (in bases) Gastrointestinal: normoactive bowel sounds Genitourinary: no bladder fullness Skin: warm Musculoskeletal: full muscle strength Neurologic: AAOx3, CN II-XII Intact Psychiatric: interacting appropriately ICD10 Worksheet Patient Problems: Problems Problem Status Onset Lung mass Acute
[2016-06-19 05:56] LABS: ANION GAP 4 mEq/L (8-16); CALCIUM 8.5 mg/dL (8.5-10.4); CARBON DIOXIDE 30 mEq/l (22-31); CHLORIDE 107 mEq/L (97-110); CREATININE 0.7 mg/dL (0.7-1.3); GLOMERULAR FILTRATION RATE > 60; GLUCOSE 89 mg/dL (70-100); POTASSIUM 4.4 mEq/L (3.5-5.2); SODIUM 141 mEq/L (134-144)
[2016-06-19] MEDS: AZITHROMYCIN IV 500 MG in D5W 250 ML IV SCH (08:24)
[2016-06-19] MEDS: CYANO/VITAMIN B12 100 MCG TAB PO SCH (08:25)
[2016-06-19] MEDS: ENOXAPARIN 40 MG/0.4 ML SYR SC SCH (08:25)
[2016-06-19] MEDS: FINASTERIDE 5 MG TAB PO SCH (08:25)
[2016-06-19] MEDS: TAMSULOSIN HCL 0.4 MG CAP PO SCH (08:25)
[2016-06-19] MEDS: MULTIVITAMINS 1 EACH TAB PO SCH (08:25)
--- NOTE | 2016-06-19 12:31 | PDIAF ---
- Diagnosis Code Status: Do Not Resuscitate - Medication Management Discharge Medications: Medications to Continue on Transfer Cyanocobalamin [Vitamin B12 (*)] 100 mcg PO DAILY 06/14/16 [Last Taken 06/13/16] Herbals/Supplements -Info Only 1 ea PO DAILY 06/14/16 [Last Taken 06/13/16] Multivitamins [Multivitamin (*)] 1 each PO DAILY 06/14/16 [Last Taken 06/13/16] Tamsulosin HCl [Flomax 0.4 MG (*)] 0.4 mg PO DAILY 06/14/16 [Last Taken 06/13/16 ] Acetaminophen [Tylenol 325mg (*)] 650 mg PO Q4HRS PRN #0 tab 06/19/16 [Last Taken Unknown] Cyanocobalamin [Vitamin B12 (*)] 100 mcg PO DAILY #0 tab 06/19/16 [Last Taken Unknown] Finasteride [Proscar 5 MG (*)] 5 mg PO DAILY #0 tab 06/19/16 [Last Taken Unknown ] Ipratropium/Albuterol [Duoneb (*)] 3 ml IH QID PRN #0 deyvial 06/19/16 [Last Taken Unknown] Ondansetron Odt [Zofran Odt 4 mg (*)] 4 mg PO Q4HRS PRN #0 tab 06/19/16 [Last Taken Unknown] levOFLOXACIN [levAQUIN (*)] 750 mg PO DAILY #11 tab 06/19/16 [Last Taken Unknown ] Discharge Medications: Refer to the Discharge Home Medication list for PRN reason. - Orders Services needed: Registered Nurse, Master Submarine Element Coordinator, Physical Therapy, Occupational Therapy Diet Recommendation: no restrictions on diet Diet Texture: Regular Texture Diet - Labs/Radiology BMP Date: 06/22/16 (On Levaquin.) - Follow Up Care Current Providers and Referrals: Patient,NotPresent [Unknown] - As per Instructions
--- NOTE | 2016-06-19 19:08 | HOSPPROG ---
Hospitalist Progress Note Assessment/Plan: #E Coli bacteremia: suspect urinary with +UA. Day 3 of CTX (cultures 06/14) -transition to PO LQ at discharge for total 2 weeks abx #Weakness: due to above. PT recommending SNF; he is agreeable to [facility] #Pulmonary infiltrates: 3x AFB negative. Will be covered with transition to LQ #Chronic neuropathy: home meds, PT/OT #BPH: Flomax #Diet: regular #DVT ppx: Lovenox #Disp: plan to DC to [facility] tomorrow Subjective: feeling better today Objective: Vital Signs Temp Pulse Resp BP Pulse Ox 36.6 C 71 20 97/69 L 95 06/19/16 15:26 06/19/16 15:26 06/19/16 15:26 06/19/16 15:26 06/19/16 15:26 Laboratory Results 06/17/16 05:15 06/19/16 04:39 06/18/16 06/19/16 06/20/16 05:59 05:59 05:59 Intake Total 2342 750 900 Output Total 400 1200 Balance 1942 -450 900 PT 13.6 SEC (12.0-15.0) 06/14/16 09:35 INR 1.05 (0.83-1.16) 06/14/16 09:35 - Physical Exam Constitutional: no apparent distress Eyes: PERRL, anicteric sclera Ears, Nose, Mouth, Throat: moist mucous membranes, hearing normal Cardiovascular: regular rate and rhythym, no murmur, rub, or gallop Respiratory: no respiratory distress, no rales or rhonchi Gastrointestinal: normoactive bowel sounds, soft, non-tender abdomen Genitourinary: no bladder fullness, no bladder tenderness, espinal in urethra Skin: warm Musculoskeletal: full muscle strength Neurologic: AAOx3, CN II-XII Intact ICD10 Worksheet Patient Problems: Problems Problem Status Onset Lung mass Acute
[2016-06-20] MEDS: TAMSULOSIN HCL 0.4 MG CAP PO SCH (07:53)
[2016-06-20] MEDS: CYANO/VITAMIN B12 100 MCG TAB PO SCH (07:53)
[2016-06-20] MEDS: FINASTERIDE 5 MG TAB PO SCH (07:53)
[2016-06-20] MEDS: MULTIVITAMINS 1 EACH TAB PO SCH (07:53)
[2016-06-20 08:00] VITALS: BP 143/74; PULSE 72; RESP 18; TEMP 97.8; O2SAT 90
[2016-06-20] MEDS: ENOXAPARIN 40 MG/0.4 ML SYR SC SCH (08:22)
[2016-06-20] MEDS: AZITHROMYCIN IV 500 MG in D5W 250 ML IV SCH (09:05)
--- NOTE | 2016-06-20 12:20 | PDIAF ---
- Diagnosis Code Status: Do Not Resuscitate - Medication Management Discharge Medications: Medications to Continue on Transfer Cyanocobalamin [Vitamin B12 (*)] 100 mcg PO DAILY 06/14/16 [Last Taken 06/13/16] Herbals/Supplements -Info Only 1 ea PO DAILY 06/14/16 [Last Taken 06/13/16] Multivitamins [Multivitamin (*)] 1 each PO DAILY 06/14/16 [Last Taken 06/13/16] Tamsulosin HCl [Flomax 0.4 MG (*)] 0.4 mg PO DAILY 06/14/16 [Last Taken 06/13/16 ] Acetaminophen [Tylenol 325mg (*)] 650 mg PO Q4HRS PRN #0 tab 06/19/16 [Last Taken Unknown] Cyanocobalamin [Vitamin B12 (*)] 100 mcg PO DAILY #0 tab 06/19/16 [Last Taken Unknown] Finasteride [Proscar 5 MG (*)] 5 mg PO DAILY #0 tab 06/19/16 [Last Taken Unknown ] Ipratropium/Albuterol [Duoneb (*)] 3 ml IH QID PRN #0 deyvial 06/19/16 [Last Taken Unknown] Ondansetron Odt [Zofran Odt 4 mg (*)] 4 mg PO Q4HRS PRN #0 tab 06/19/16 [Last Taken Unknown] levOFLOXACIN [levAQUIN (*)] 750 mg PO DAILY #10 tab 06/20/16 [Last Taken Unknown ] Discharge Medications: Refer to the Discharge Home Medication list for PRN reason. - Orders Services needed: Registered Nurse, Master Print Press Operator, Physical Therapy, Occupational Therapy Diet Recommendation: no restrictions on diet Diet Texture: Regular Texture Diet - Labs/Radiology BMP Date: 06/22/16 (On Levaquin.) - Follow Up Care Current Providers and Referrals: Patient,NotPresent [Unknown] - As per Instructions
--- NOTE | 2016-06-20 20:05 | GDS ---
[f rep st] DISCHARGE SUMMARY DISCHARGE DIAGNOSES: 1. Escherichia coli bacteremia. 2. Urinary tract infection. 3. Weakness. 4. Pulmonary infiltrates. 5. Chronic neuropathy. 6. Benign prostatic hypertrophy. 7. Acute hypoxic respiratory failure HISTORY OF PRESENT ILLNESS: Patient is an 85-year-old male presenting with acute weakness characterized by inability to get out of bed with associated shortness of breath. He has had a nonproductive cough for approximately the past month. His cough is worse in the morning and is alleviated by sitting up. He has no productive sputum. He denies any recent travel. No chest pain. No fevers. No chills or night sweats. HOSPITAL COURSE BY PROBLEM: 1. Acute hypoxic respiratory failure. CT demonstrated chronic bronchiectasis and scarring. Per patient report, he has had negative workups for tuberculosis in the past. He is followed by [facility]. He had 3 negative AFB cultures here. Patient was initially treated for community-acquired pneumonia here. Lower suspicion for active pneumonia given the fact that he has minimal symptoms, is afebrile, without a productive cough. He is being treated with Levaquin for his bacteremia, so this would cover a pulmonary source as well. 2. Escherichia coli bacteremia secondary to urinary tract infection. The patient was initially treated with IV ceftriaxone. He has now been transitioned to oral Levaquin for a total 14 days of treatment. 3. Weakness. Suspect this is due to acute infection. He was evaluated by PT and recommended SNF. He will be transferred to [facility] today. 4. Chronic neuropathy. Continue home medication. 5. Benign prostatic hypertrophy. Flomax. DISPOSITION: Patient is stable for discharge. MEDICATIONS: See medication reconciliation. FOLLOWUP: PCP at [facility]. /[id number]/MODL MTDD
== END 2016-06-20 17:00 | DRG 689 ==
LOC: EDUNIT# → F1N 14:20 → OBSVTOIN 06-15 15:46
PROVIDERS: ADMIT Internal Medicine; ATTEND Internal Medicine
DX: N39.0 Urinary tract infection, site not specified (principal); R78.81 Bacteremia; B96.20 Unspecified Escherichia coli [E. coli] as the cause of diseases classified elsewhere; R53.1 Weakness; J84.10 Pulmonary fibrosis, unspecified; J96.01 Acute respiratory failure with hypoxia; G62.9 Polyneuropathy, unspecified; N40.0 Benign prostatic hyperplasia without lower urinary tract symptoms
CPT/HCPCS: 97110-GO; 97110-GP; 97116-GP; 97161-GP; 97166-GO; 97530-GP; 97535-GO; G0378; G8978-GP-CJ; G8979-GP-CI; J0456; J0696; J1335; J1650; Q9967